=== PATIENT | female | born 1955 | race Caucasian/White ===

== ENCOUNTER → 2020-07-30 11:08 | Outpatient (BNVA) | payer BC, SELFPAY | PROVIDERS: PCP Family Medicine; Visit Provider Internal Medicine Rheumatology | DX: M19.90 Unspecified osteoarthritis, unspecified site (principal); Z79.899 Other long term (current) drug therapy; Z11.59 Encounter for screening for other viral diseases; Z11.1 Encounter for screening for respiratory tuberculosis; K74.3 Primary biliary cirrhosis; J84.9 Interstitial pulmonary disease, unspecified; Z87.891 Personal history of nicotine dependence; R76.8 Other specified abnormal immunological findings in serum | CPT/HCPCS: 36415; 80076; 81001; 82306; 82565; 82570; 84156; 85025; 85651; 86140; 86160; 86431; 86480; 86704; 86803; 87340; 99204 ==

== ENCOUNTER → 2020-09-03 15:39 | Outpatient (BNVA) | payer BC, SELFPAY | PROVIDERS: PCP Family Medicine; Visit Provider Internal Medicine Rheumatology | DX: M05.79 Rheumatoid arthritis with rheumatoid factor of multiple sites without organ or systems involvement (principal); J84.9 Interstitial pulmonary disease, unspecified; J43.9 Emphysema, unspecified; R76.8 Other specified abnormal immunological findings in serum; K74.3 Primary biliary cirrhosis; Z79.899 Other long term (current) drug therapy; Z87.891 Personal history of nicotine dependence | CPT/HCPCS: 99215 ==

== ENCOUNTER → 2021-09-03 13:37 | Outpatient (BNVA) | payer MEDICARE, BC, SELFPAY | PROVIDERS: PCP Student in an Organized Health Care Education/Training Program; Visit Provider Internal Medicine Rheumatology | DX: M05.79 Rheumatoid arthritis with rheumatoid factor of multiple sites without organ or systems involvement (principal); J84.9 Interstitial pulmonary disease, unspecified; K74.3 Primary biliary cirrhosis; Z79.899 Other long term (current) drug therapy; R79.89 Other specified abnormal findings of blood chemistry | CPT/HCPCS: 99214 ==

== ENCOUNTER → 2021-12-17 10:53 | Outpatient (BNVA) | payer MEDICARE, BC, SELFPAY | PROVIDERS: PCP Student in an Organized Health Care Education/Training Program; Visit Provider Internal Medicine Rheumatology | DX: R76.8 Other specified abnormal immunological findings in serum (principal); M05.79 Rheumatoid arthritis with rheumatoid factor of multiple sites without organ or systems involvement; Z79.899 Other long term (current) drug therapy; J84.9 Interstitial pulmonary disease, unspecified; Z85.528 Personal history of other malignant neoplasm of kidney; Z90.5 Acquired absence of kidney; Z71.89 Other specified counseling | CPT/HCPCS: 99214 ==

== ENCOUNTER → 2022-08-02 13:40 | Outpatient (BNVA) | payer MEDICARE, BC, SELFPAY | PROVIDERS: PCP Student in an Organized Health Care Education/Training Program; Visit Provider Internal Medicine Rheumatology | DX: R76.8 Other specified abnormal immunological findings in serum (principal); Z79.899 Other long term (current) drug therapy; M05.79 Rheumatoid arthritis with rheumatoid factor of multiple sites without organ or systems involvement; Z71.89 Other specified counseling; J84.9 Interstitial pulmonary disease, unspecified; K74.3 Primary biliary cirrhosis; J43.9 Emphysema, unspecified; Z90.5 Acquired absence of kidney; Z85.528 Personal history of other malignant neoplasm of kidney | CPT/HCPCS: 99214 ==

== ENCOUNTER → 2022-12-15 10:55 | Outpatient (BNVA) | payer MEDICARE, BC, SELFPAY | PROVIDERS: PCP Student in an Organized Health Care Education/Training Program; Visit Provider Internal Medicine Rheumatology | DX: M05.79 Rheumatoid arthritis with rheumatoid factor of multiple sites without organ or systems involvement (principal); Z79.899 Other long term (current) drug therapy; Z71.89 Other specified counseling; J84.9 Interstitial pulmonary disease, unspecified; R76.8 Other specified abnormal immunological findings in serum; K74.3 Primary biliary cirrhosis; Z87.09 Personal history of other diseases of the respiratory system; J43.9 Emphysema, unspecified; Z85.528 Personal history of other malignant neoplasm of kidney; Z90.5 Acquired absence of kidney; Z08 Encounter for follow-up examination after completed treatment for malignant neoplasm; Z09 Encounter for follow-up examination after completed treatment for conditions other than malignant neoplasm | CPT/HCPCS: 99214 ==

== ENCOUNTER → 2023-03-16 12:31 | Outpatient (BNVA) | payer MEDICARE, BC, SELFPAY | PROVIDERS: Visit Provider Internal Medicine Rheumatology | DX: M05.79 Rheumatoid arthritis with rheumatoid factor of multiple sites without organ or systems involvement (principal); Z79.899 Other long term (current) drug therapy; Z71.89 Other specified counseling; J84.9 Interstitial pulmonary disease, unspecified; R76.8 Other specified abnormal immunological findings in serum; K74.3 Primary biliary cirrhosis | CPT/HCPCS: 99214 ==

== ENCOUNTER → 2023-06-01 13:54 | Outpatient (BNVA) | payer MEDICARE, BC, SELFPAY | PROVIDERS: PCP Family Medicine; Visit Provider Internal Medicine Rheumatology | DX: Z79.899 Other long term (current) drug therapy (principal); M05.79 Rheumatoid arthritis with rheumatoid factor of multiple sites without organ or systems involvement; Z71.89 Other specified counseling; J84.9 Interstitial pulmonary disease, unspecified; R76.8 Other specified abnormal immunological findings in serum; K74.3 Primary biliary cirrhosis | CPT/HCPCS: 99214 ==

== ENCOUNTER → 2023-06-14 13:23 | Outpatient (BNVA) | payer MEDICARE, BC, SELFPAY | PROVIDERS: PCP Family Medicine; Visit Provider Nurse Practitioner Family | DX: Z12.83 Encounter for screening for malignant neoplasm of skin (principal); Z80.8 Family history of malignant neoplasm of other organs or systems; L57.0 Actinic keratosis; D22.5 Melanocytic nevi of trunk; L81.4 Other melanin hyperpigmentation; S50.862A Insect bite (nonvenomous) of left forearm, initial encounter; S30.860A Insect bite (nonvenomous) of lower back and pelvis, initial encounter; S70.361A Insect bite (nonvenomous), right thigh, initial encounter; S70.362A Insect bite (nonvenomous), left thigh, initial encounter; X58.XXXA Exposure to other specified factors, initial encounter; L82.1 Other seborrheic keratosis | CPT/HCPCS: 17004; 99213 ==

== ENCOUNTER 2023-07-21 07:35 | Oncology outpatient (recurring) (ONCR) | payer MEDICARE, BC, SELFPAY ==
[2023-07-21] VITALS (9 sets, daily range): BP systolic 93–126; BP diastolic 43–67; PULSE 46–88; RESP 18; TEMP 36.1–36.7; O2SAT 93–94; BMI 36.7
[2023-07-21] MEDS: diphenhydrAMINE 25 mg Capsule PO (09:20)
[2023-07-21] MEDS: loratadine 10 mg Tablet PO (09:20)
[2023-07-21] MEDS: sodium chloride 0.9% 250 ML 75 ML IV (09:21)
[2023-07-21] MEDS: rituximab 1,000 MG in sodium chloride 0.9% 500 ML 35 MG IV (10:15)
== END 2023-07-21 23:59 | disposition home or self-care (01) ==
PROVIDERS: PCP Family Medicine; Visit Provider Internal Medicine Medical Oncology
DX: M05.9 Rheumatoid arthritis with rheumatoid factor, unspecified (principal); Z53.9 Procedure and treatment not carried out, unspecified reason
CPT/HCPCS: 96413; 96415; J7040; J7050; J9312

== ENCOUNTER 2023-08-03 07:51 | Oncology outpatient (recurring) (ONCR) | payer MEDICARE, BC, SELFPAY ==
[2023-08-03] VITALS (9 sets, daily range): BP systolic 90–112; BP diastolic 49–67; PULSE 68–76; RESP 16–20; TEMP 35.9–36.6; O2SAT 93–97
[2023-08-03] MEDS: diphenhydrAMINE 25 mg Capsule PO (08:53)
[2023-08-03] MEDS: loratadine 10 mg Tablet PO (08:53)
[2023-08-03] MEDS: sodium chloride 0.9% 250 ML 75 ML IV (08:59)
[2023-08-03] MEDS: rituximab 1,000 MG in sodium chloride 0.9% 500 ML 35 MG IV (09:30)
== END 2023-08-03 23:59 | disposition home or self-care (01) ==
LOC: ONCMED 07:51
PROVIDERS: PCP Family Medicine; Visit Provider Internal Medicine Medical Oncology
DX: M05.89 Other rheumatoid arthritis with rheumatoid factor of multiple sites (principal)
CPT/HCPCS: 96413; 96415; J7040; J7050; J9312

== ENCOUNTER → 2024-06-14 11:43 | Outpatient (BNVA) | payer MEDICARE, BC, SELFPAY | PROVIDERS: PCP Family Medicine; Visit Provider Nurse Practitioner Family | DX: D48.5 Neoplasm of uncertain behavior of skin (principal); D22.5 Melanocytic nevi of trunk; L81.8 Other specified disorders of pigmentation; L81.4 Other melanin hyperpigmentation; L82.1 Other seborrheic keratosis; L85.3 Xerosis cutis | CPT/HCPCS: 11102; 99213 ==

== ENCOUNTER 2024-09-18 07:52 | Oncology outpatient (recurring) (ONCR) | payer MEDICARE, BC, SELFPAY ==
[2024-09-18] VITALS (16 sets, daily range): BP systolic 90–120; BP diastolic 51–71; PULSE 80–98; RESP 14–20; TEMP 36.1–37.7; O2SAT 93–99
[2024-09-18] MEDS: loratadine 10 mg Tablet PO (08:57)
[2024-09-18] MEDS: diphenhydrAMINE 25 mg Capsule PO (08:58)
[2024-09-18] MEDS: rituximab 1,000 MG in sodium chloride 0.9% 500 ML 70 MG IV (09:45)
== END 2024-09-18 23:59 | disposition home or self-care (01) ==
PROVIDERS: PCP Family Medicine; Visit Provider Internal Medicine Rheumatology
DX: M05.89 Other rheumatoid arthritis with rheumatoid factor of multiple sites (principal); Z79.899 Other long term (current) drug therapy
CPT/HCPCS: 96413; 96415; J7040; J9312

== ENCOUNTER 2024-10-02 07:54 | Oncology outpatient (recurring) (ONCR) | payer MEDICARE, BC, SELFPAY ==
[2024-10-02] VITALS (9 sets, daily range): BP systolic 97–142; BP diastolic 63–76; PULSE 78–95; RESP 16–18; TEMP 35.9–36.6; O2SAT 97–99
[2024-10-02] MEDS: sodium chloride 0.9% 250 ML 35 ML IV (10:04)
[2024-10-02] MEDS: diphenhydrAMINE 25 mg Capsule PO (10:05)
[2024-10-02] MEDS: loratadine 10 mg Tablet PO (10:05)
[2024-10-02] MEDS: rituximab 1,000 MG in sodium chloride 0.9% 500 ML 32.5 MG IV (10:50)
== END 2024-10-02 23:59 | disposition home or self-care (01) ==
PROVIDERS: PCP Family Medicine; Visit Provider Internal Medicine Rheumatology
DX: M05.89 Other rheumatoid arthritis with rheumatoid factor of multiple sites (principal); Z79.899 Other long term (current) drug therapy
CPT/HCPCS: 96365; 96366; J7040; J7050; J9312

== ENCOUNTER → 2025-06-17 13:47 | Outpatient (BNVA) | payer MEDICARE, BC, SELFPAY | PROVIDERS: PCP Family Medicine; Visit Provider Nurse Practitioner Family | DX: L81.4 Other melanin hyperpigmentation (principal); L57.8 Other skin changes due to chronic exposure to nonionizing radiation; L57.0 Actinic keratosis; X32.XXXA Exposure to sunlight, initial encounter; Z80.8 Family history of malignant neoplasm of other organs or systems; L82.0 Inflamed seborrheic keratosis; L29.89 Other pruritus; R20.9 Unspecified disturbances of skin sensation; R20.8 Other disturbances of skin sensation; L53.8 Other specified erythematous conditions; D48.5 Neoplasm of uncertain behavior of skin | CPT/HCPCS: 11102; 17000; 17110; 99213 ==

== ENCOUNTER → 2025-10-07 09:02 | Outpatient (BNVA) | payer MEDICARE, BC, SELFPAY | PROVIDERS: PCP Family Medicine; Visit Provider Nurse Practitioner Family | DX: L30.9 Dermatitis, unspecified (principal); R20.9 Unspecified disturbances of skin sensation; L29.89 Other pruritus; L81.4 Other melanin hyperpigmentation; L57.8 Other skin changes due to chronic exposure to nonionizing radiation; D22.5 Melanocytic nevi of trunk; L82.1 Other seborrheic keratosis | CPT/HCPCS: 11104; 99214 ==

== ENCOUNTER → 2025-10-28 14:16 | Outpatient (BNVA) | payer MEDICARE, BC, SELFPAY | PROVIDERS: PCP Family Medicine; Visit Provider Nurse Practitioner Family | DX: L27.0 Generalized skin eruption due to drugs and medicaments taken internally (principal); L81.4 Other melanin hyperpigmentation; L57.8 Other skin changes due to chronic exposure to nonionizing radiation | CPT/HCPCS: 99214 ==